=== PATIENT | male | born 1950 | race Two or more races ===

== ENCOUNTER 2020-02-08 08:43 | Outpatient (CLI) | payer OTHER | END 2020-02-08 08:53 | disposition home or self-care (01) | LOC: LAB 08:43 | PROVIDERS: ATTEND Obstetrics & Gynecology | DX: Z03.818 Encounter for observation for suspected exposure to other biological agents ruled out (principal); E78.01 Familial hypercholesterolemia ==

== ENCOUNTER 2020-02-14 06:29 | Day surgery (SDC) | payer OTHER | END 2020-02-14 09:15 | disposition home or self-care (01) | LOC: AMB-ENDOS 06:29 | PROVIDERS: ATTEND Colon & Rectal Surgery | DX: D12.4 Benign neoplasm of descending colon (principal); Z20.828 Contact with and (suspected) exposure to other viral communicable diseases; K64.0 First degree hemorrhoids ==

== ENCOUNTER 2020-12-04 08:00 | Outpatient (CLI) | payer OTHER | END 2020-12-04 08:12 | disposition home or self-care (01) | LOC: PPH VACUNA 08:00 | PROVIDERS: ATTEND Emergency Medicine Pediatric Emergency Medicine | DX: Z23 Encounter for immunization (principal) ==

== ENCOUNTER 2021-06-29 14:20 | Outpatient (CLI) | payer OTHER | END 2021-06-29 15:15 | disposition home or self-care (01) | LOC: ASH CLINIC 14:20 | PROVIDERS: ATTEND Emergency Medicine | DX: U07.1 COVID-19 (principal) ==

== ENCOUNTER 2021-11-18 14:27 | Outpatient (CLI) | payer OTHER | END 2021-11-18 14:32 | disposition home or self-care (01) | LOC: PPH VACUNA 14:27 | PROVIDERS: ATTEND Emergency Medicine Pediatric Emergency Medicine | DX: Z23 Encounter for immunization (principal) ==

== ENCOUNTER 2022-10-21 11:15 | Outpatient (CLI) | payer OTHER | END 2022-10-21 11:20 | disposition home or self-care (01) | LOC: PPH VACUNA 11:15 | PROVIDERS: ATTEND Emergency Medicine Pediatric Emergency Medicine | DX: Z23 Encounter for immunization (principal) ==